=== PATIENT | male | born 1990 | race Caucasian/White ===

== ENCOUNTER 2016-08-15 14:48 | Emergency (ER) | payer OTHER ==
[~2016-08-15] VITALS: Ht 175.3 cm; Wt 95.3 kg
[2016-08-15 15:06] VITALS: TEMP 36.5; Ht 175.3 cm; Wt 95.3 kg
--- NOTE | 2016-08-15 17:06 | DIAGNOSTIC IMAGING REPORT ---
CHEST ONE VIEW PORTABLE HISTORY: EVALUATE ALTERED MENTAL STATUS/WEAKNESS COMPARISON: None. FINDINGS: The lungs are clear. Cardiac silhouette is normal in size. No pleural effusions. No pneumothorax. IMPRESSION: No acute process. Electronically signed by: Adrián Greenwood M.D. 08/15/2016 5:04 PM Dictated Date/Time: 08/15/2016 5:03 PM
[2016-08-15 17:36] LABS: BASO % 0.3 %; BASO ABS # 0.02 K/uL (0-0.2); COMPLETE YES; EOS % 6.3 %; HEMATOCRIT 47.1 % (42-52); IG% 0.3 %; LYMPH % 21.2 %; LYMPH ABS # 1.69 K/uL (1.2-3.4); MEAN CELL VOLUME 86.3 fL (80-100); MEAN CORPUSCULAR HEMOGLOBIN 30.8 pg (25-34); MEAN CORPUSCULAR HGB CONC 35.7 g/dl (32-36); MEAN PLATELET VOLUME 10.6 fL (7.4-10.4); MONO % 6.1 %; NEUT % 65.8 %; PLATELET COUNT 211 K/uL (130-400); RED BLOOD COUNT 5.46 M/uL (4.7-6.1); WHITE BLOOD COUNT 7.98 K/uL (4.8-10.8)
[2016-08-15 18:00] LABS: ALT/SGPT 37 U/L (12-78); AST/SGOT 17 U/L (15-37); BLOOD UREA NITROGEN 13 mg/dl (7-18); BUN/CREATININE RATIO 14.3 (10-20); CALCIUM 9.8 mg/dl (8.5-10.1); CARBON DIOXIDE 28 mmol/L (21-32); CHLORIDE 104 mmol/L (98-107); CREATININE 0.89 mg/dl (0.60-1.40); GLUCOSE 83 mg/dl (70-99); MAGNESIUM 2.3 mg/dl (1.8-2.4); POTASSIUM 3.9 mmol/L (3.5-5.1); SODIUM 140 mmol/L (136-145)
[2016-08-15 18:06] LABS: ALKALINE PHOSPHATASE 87 U/L (45-117); CKMB/CK RATIO 0.6 (0-3.0)
--- NOTE | 2016-08-15 18:11 | EMERGENCY ROOM VISIT NOTE ---
History Report prepared by Martha: Alcon Kuhn Under the Supervision of: Dr. Natalio Sosa D.O. First contact with patient: 16:44 Chief Complaint: REFERRED BY DOCTOR Stated Complaint: LIGHT HEADEDNESS, FACE NUMB, NAUSEA, CHEST DISCOM History of Present Illness The patient is a 26 year old male who presents to the Emergency Room with complaints of intermittent chest fluttering beginning 2-3 days prior to arrival. He states he has been experiencing this fluttering in his chest, which prevents him from sleeping well at night. The patient notes he was at work today and began experiencing a tingling sensation in his cheeks and forehead. He states he also experienced lightheadedness and nausea. The patient notes he has been eating and drinking well. He denies his family having a history of cardiac issues. The patient notes he is an occasional smoker and occasionally drinks alcohol, as well. He denies using recreational drugs. The patient denies trouble walking, vomiting, diarrhea, and recent flu-like symptoms. He notes he was seen at [facility] today, and he was referred to the ED for further evaluation. Source of History: patient Onset: 2-3 days [employer] Position: chest Quality: other (fluttering) Timing: intermittent Associated Symptoms: + nausea (resolved), No diarrhea, No vomiting Note: Associated symptoms: resolved lightheadedness, resolved tingling sensation in the cheeks and forehead. Review of Systems See HPI for pertinent positives & negatives. A total of 10 systems reviewed and were otherwise negative. Past Medical & Surgical Medical Problems: (1) No pertinent past medical history Family History Patient reports no known family medical history. Social History Smoking Status: Former Smoker Marital Status: single Occupation Status: employed Current/Historical Medications No Active Prescriptions or Reported Meds Allergies Coded Allergies: No Known Allergies (Unverified , 08/15/16) Physical Exam Vital Signs Date Time Temp Pulse Resp B/P Pulse Ox O2 Delivery O2 Flow Rate FiO2 08/15/16 17:13 65 08/15/16 15:06 36.5 85 16 123/90 96 Room Air Physical Exam VITAL SIGNS: were reviewed as above. GENERAL:Non-toxic in appearance. SKIN: Warm dry and pink. HEAD: Normocephalic and atraumatic. OROPHARYNX: Is clear and moist NECK: Supple without lymphadenopathy or meningismus. LUNGS: clear. HEART: Regular rate and rhythm. ABDOMEN: Soft and nontender. EXTREMITIES: Warm and well perfused. NEUROLOGICALLY: Awake alert and oriented without focal deficit. Cranial nerves 2 -12 are intact. There is no pronator drift. Cerebellar testing is within normal limits. There is no nystagmus. There is no facial droop. Speech is clear. Vision is grossly normal. MUSCULOSKELETAL: Good muscle tone. No evidence of trauma. Medical Decision & Procedures ER Provider Diagnostic Interpretation: X ray results and stated below per my interpretation and radiology interpretation. CHEST ONE VIEW PORTABLE HISTORY: EVALUATE ALTERED MENTAL STATUS/WEAKNESS COMPARISON: None. FINDINGS: The lungs are clear. Cardiac silhouette is normal in size. No pleural effusions. No pneumothorax. IMPRESSION: No acute process. Electronically signed by: Adrián Greenwood M.D. 08/15/2016 5:04 PM Dictated Date/Time: 08/15/2016 5:03 PM Laboratory Results 08/15/16 17:20 Red Blood Count 5.46, Mean Corpuscular Volume 86.3, Mean Corpuscular Hemoglobin 30.8, Mean Corpuscular Hemoglobin Concent 35.7, Mean Platelet Volume 10.6, Neutrophils (%) (Auto) 65.8, Lymphocytes (%) (Auto) 21.2, Monocytes (%) (Auto) 6.1, Eosinophils (%) (Auto) 6.3, Basophils (%) (Auto) 0.3, Neutrophils # (Auto) 5.26, Lymphocytes # (Auto) 1.69, Monocytes # (Auto) 0.49, Eosinophils # (Auto) 0.50, Basophils # (Auto) 0.02 08/15/16 17:20 Test 08/15/16 17:20 White Blood Count 7.98 K/uL (4.8-10.8) Red Blood Count 5.46 M/uL (4.7-6.1) Hemoglobin 16.8 g/dL (14.0-18.0) Hematocrit 47.1 % (42-52) Mean Corpuscular Volume 86.3 fL (80-100) Mean Corpuscular Hemoglobin 30.8 pg (25-34) Mean Corpuscular Hemoglobin Concent 35.7 g/dl (32-36) Platelet Count 211 K/uL (130-400) Mean Platelet Volume 10.6 fL (7.4-10.4) Neutrophils (%) (Auto) 65.8 % Lymphocytes (%) (Auto) 21.2 % Monocytes (%) (Auto) 6.1 % Eosinophils (%) (Auto) 6.3 % Basophils (%) (Auto) 0.3 % Neutrophils # (Auto) 5.26 K/uL (1.4-6.5) Lymphocytes # (Auto) 1.69 K/uL (1.2-3.4) Monocytes # (Auto) 0.49 K/uL (0.11-0.59) Eosinophils # (Auto) 0.50 K/uL (0-0.5) Basophils # (Auto) 0.02 K/uL (0-0.2) RDW Standard Deviation 39.3 fL (36.4-46.3) RDW Coefficient of Variation 12.5 % (11.5-14.5) Immature Granulocyte % (Auto) 0.3 % Immature Granulocyte # (Auto) 0.02 K/uL (0.00-0.02) Anion Gap 8.0 mmol/L (3-11) Est Creatinine Clear Calc Drug Dose 142.1 ml/min Estimated GFR () 135.8 Estimated GFR (Non- 117.2 BUN/Creatinine Ratio 14.3 (10-20) Calcium Level 9.8 mg/dl (8.5-10.1) Magnesium Level 2.3 mg/dl (1.8-2.4) Total Bilirubin 0.3 mg/dl (0.2-1) Direct Bilirubin < 0.1 mg/dl (0-0.2) Aspartate Amino Transf (AST/SGOT) 17 U/L (15-37) Alanine Aminotransferase (ALT/SGPT) 37 U/L (12-78) Alkaline Phosphatase 87 U/L (45-117) Total Creatine Kinase 166 U/L (39-308) Creatine Kinase MB 1.0 ng/ml (0.5-3.6) Creatine Kinase MB Ratio 0.6 (0-3.0) Troponin I < 0.015 ng/ml (0-0.045) Total Protein 8.3 gm/dl (6.4-8.2) Albumin 4.5 gm/dl (3.4-5.0) Lipase 112 U/L (73-393) Thyroid Stimulating Hormone (TSH) 1.820 uIu/ml (0.300-4.500) Laboratory results as stated above per my review. ECG Indication: chest pain (flutter) Rate (beats per minute): 86 Rhythm: normal sinus Findings: no ectopy, other (no acute injury) ED Course 164: Previous medical records were reviewed. The patient was evaluated in room A10. A complete history and physical examination was performed. 1812: On reevaluation, the patient is doing well. I discussed the results and findings with the patient. He verbalized agreement of the treatment plan. The patient was discharged home. Medical Decision Differential diagnosis: Etiologies such as metabolic, infection, hypo/hyperglycemia, electrolyte abnormalities, cardiac sources, intracerebral event, toxicologic, neurologic, as well as others were entertained. This is a 26-year-old male who presents to the ED with a chief complaint of a fluttering sensation in his chest the past couple of days intermittently. The patient also reports some tingling in his face and cheeks today while he was at work. He also states that he became lightheaded and nauseated. He came in to make sure that everything was okay. He is currently not experiencing any significant symptoms. His vital signs are normal. His physical exam was normal. Her neurologic exam was normal as well. Chest x-ray did not show any acute disease. EKG shows a normal sinus rhythm. CBC was normal. Complete metabolic panel is normal. Troponin is normal. TSH is normal. The patient was told the results of the test. He is felt to be stable for discharge and outpatient follow-up. Impression Primary Impression: Paresthesia Additional Impression: Fluttering sensation of heart Scribe Attestation The scribe's documentation has been prepared under my direction and personally reviewed by me in its entirety. I confirm that the note above accurately reflects all work, treatment, procedures, and medical decision making performed by me. Departure Information Dispostion Home / Self-Care Prescriptions No Active Prescriptions or Reported Meds Forms HOME CARE DOCUMENTATION FORM, IMPORTANT VISIT INFORMATION, WORK / SCHOOL INSTRUCTIONS Patient Instructions A Signature Page, My [facility] Additional Instructions Your test results today are normal. Follow-up with your doctor for further care and evaluation in 1-2 days. Return to the emergency department for worsening or new symptoms or any concerns. You have been examined and treated today on an emergency basis only. This is not a substitute for, or an effort to provide, complete comprehensive medical care. It is impossible to recognize and treat all injuries or illnesses in a single emergency department visit. It is therefore important that you follow up closely with your doctor. Call as soon as possible for an appointment.
[2016-08-15 18:23] VITALS: BP 126/71; PULSE 71; O2SAT 97
== END 2016-08-15 18:23 | disposition home or self-care (01) ==
LOC: C.EDB 14:51 → C.EDA 18:23
DX: R20.2 Paresthesia of skin (principal); R00.2 Palpitations; R42 Dizziness and giddiness; R11.0 Nausea; F17.200 Nicotine dependence, unspecified, uncomplicated